=== PATIENT | female | born 1950 | race Caucasian/White ===

== ENCOUNTER 2020-03-31 10:07 | Emergency (ER) | payer MEDICARE ==
[~2020-03-31] VITALS: Ht 152.4 cm; Wt 66.0 kg
[2020-03-31 10:32] VITALS: BP 110/89
== END 2020-03-31 10:46 | disposition left against medical advice (07) ==
LOC: ER 10:20
DX: R42 Dizziness and giddiness (principal); R06.02 Shortness of breath; Z00.00 Encounter for general adult medical examination without abnormal findings
CPT/HCPCS: 99283